=== PATIENT | male | born 1995 | race Caucasian/White ===

== ENCOUNTER 2016-09-20 19:40 | Emergency (ER) | payer BC ==
[~2016-09-20] VITALS: Ht 185.4 cm; Wt 81.0 kg
[2016-09-20 19:44] VITALS: TEMP 36.8; Ht 185.4 cm; Wt 81.0 kg
[2016-09-20] MEDS ORDERED: SODIUM CHLORIDE 0.9% 1000ML 1,000 ML IV STA (19:59)
[2016-09-20 20:16] LABS: BASO % 0.3 %; BASO ABS # 0.02 K/uL (0-0.2); COMPLETE YES; EOS % 0.5 %; HEMATOCRIT 43.9 % (42-52); IG% 0.1 %; LYMPH ABS # 2.29 K/uL (1.2-3.4); MEAN CELL VOLUME 85.1 fL (80-100); MEAN CORPUSCULAR HEMOGLOBIN 29.5 pg (25-34); MEAN CORPUSCULAR HGB CONC 34.6 g/dl (32-36); MEAN PLATELET VOLUME 10.1 fL (7.4-10.4); MONO % 8.3 %; NEUT % 61.8 %; PLATELET COUNT 229 K/uL (130-400); RED BLOOD COUNT 5.16 M/uL (4.7-6.1); WHITE BLOOD COUNT 7.91 K/uL (4.8-10.8)
[2016-09-20 20:32] LABS: CALCIUM 9.2 mg/dl (8.5-10.1); CREATININE 0.97 mg/dl (0.60-1.40); POTASSIUM 3.2 mmol/L (3.5-5.1)
--- NOTE | 2016-09-20 20:55 | DIAGNOSTIC IMAGING REPORT ---
CHEST 2 VIEWS ROUTINE CLINICAL HISTORY: eval for pnea dyspnea COMPARISON STUDY: No previous studies for comparison. FINDINGS: The bones soft tissues and hemidiaphragms are normal. The cardiomediastinal silhouette is normal. The lungs are clear. The pulmonary vasculature is normal. IMPRESSION: Negative chest. Electronically signed by: Alvin Maldonado M.D. 09/20/2016 8:54 PM Dictated Date/Time: 09/20/2016 8:54 PM
[2016-09-20 21:06] VITALS: BP 162/90; O2SAT 99
[2016-09-20 21:08] VITALS: PULSE 59
[2016-09-20] MEDS ORDERED: ATV/1 PO (21:28)
--- NOTE | 2016-09-20 21:54 | EMERGENCY ROOM VISIT NOTE ---
History Report prepared by Jasmyne: Bailee Diana Under the Supervision of: Dr. Pineda Barnes M.D. First contact with patient: 19:46 Chief Complaint: ANXIETY Stated Complaint: FLU SYMPTOMS, INTENSE ANXIETY History of Present Illness The patient is a 21 year old male who presents to the Emergency Room with complaints of worsening anxiety over the past week. The patient notes that he has a history of anxiety and was on Seroquel and Lexapro while he was in high school. He was eventually taken off of the medications and has not been on medications for anxiety in about 4 years. Since then, he has been able to control his anxiety. Since his anxiety began about a week ago he has not felt in control of it, which worries him. He has been having difficulty sleeping secondary to his anxiety. He does not recall any specific trigger to his anxiety other than some stress. He denies suicidal ideation but does admit that he is feeling depressed. The patient reports that he took a friend's Xanax 3 times but has not taken any Xanax since about a week ago. The patient also complains of flu-like symptoms that began about a week ago. He states that he has had a subjective fever, runny nose, mild sore throat, productive cough with green sputum, nausea, and diarrhea. He feels like he is very dehydrated with a dry mouth. Denies vomiting, urinary symptoms, or other complaints.He has been taking Nyquil to aid with some of these symptoms as well as his insomnia. Source of History: patient Onset: a week ago Position: other (global ) Quality: other (anxiety) Timing: worsening Modifying Factors (Worsening): other (stress) Associated Symptoms: + cough (productive with green sputum), + diarrhea, + fevers (subjective), + nausea, + sorethroat, No urinary symptoms, No vomiting Note: Other symptoms: runny nose Review of Systems See HPI for pertinent positives & negatives. A total of 10 systems reviewed and were otherwise negative. Past Medical & Surgical Medical Problems: (1) Anxiety Family History No pertinent family history stated. Social History Smoking Status: Current Every Day Smoker Housing Status: lives with roommate Occupation Status: [employer] student Current/Historical Medications Scheduled PRN Lorazepam (Ativan), 1 MG PO Q8 PRN for Anxiety/Agitation Allergies Coded Allergies: No Known Allergies (Unverified , 09/20/16) Physical Exam Vital Signs Date Time Temp Pulse Resp B/P Pulse Ox O2 Delivery O2 Flow Rate FiO2 09/20/16 21:08 59 09/20/16 21:06 52 16 162/90 99 Room Air 09/20/16 19:44 36.8 77 18 168/79 98 Room Air Physical Exam Constitutional: Vital signs reviewed. Eyes: Pupils are equal round reactive to light. Conjunctiva are noninjected. ENT: Pharynx is mildly erythematous without exudate. Mucous membranes are moist. Neck supple without meningeal signs. Respiratory: Clear to auscultation bilaterally. Breath sounds are equal bilaterally. Cardiovascular: Regular rate and rhythm. No rubs or gallops. GI: Soft, nondistended and nontender. Bowel sounds are present. Musculoskeletal: No peripheral edema. No CVA tenderness. Integumentary: No cyanosis. Neurological: The patient is awake and alert. No focal deficits. Psychiatric: Anxious. Normal affect. Medical Decision & Procedures ER Provider Diagnostic Interpretation: X-ray results as stated below per interpretation by me and the radiologist: CHEST 2 VIEWS ROUTINE CLINICAL HISTORY: eval for pnea dyspnea COMPARISON STUDY: No previous studies for comparison. FINDINGS: The bones soft tissues and hemidiaphragms are normal. The cardiomediastinal silhouette is normal. The lungs are clear. The pulmonary vasculature is normal. IMPRESSION: Negative chest. Electronically signed by: Alvin Maldonado M.D. 09/20/2016 8:54 PM Dictated Date/Time: 09/20/2016 8:54 PM Laboratory Results 09/20/16 20:10 Red Blood Count 5.16, Mean Corpuscular Volume 85.1, Mean Corpuscular Hemoglobin 29.5, Mean Corpuscular Hemoglobin Concent 34.6, Mean Platelet Volume 10.1, Neutrophils (%) (Auto) 61.8, Lymphocytes (%) (Auto) 29.0, Monocytes (%) (Auto) 8.3, Eosinophils (%) (Auto) 0.5, Basophils (%) (Auto) 0.3, Neutrophils # (Auto) 4.89, Lymphocytes # (Auto) 2.29, Monocytes # (Auto) 0.66, Eosinophils # (Auto) 0.04, Basophils # (Auto) 0.02 09/20/16 20:10 Test 09/20/16 20:00 09/20/16 20:10 Influenza Type A Antigen Neg for Influ A (NEG) Influenza Type B Antigen Neg for Influ B (NEG) White Blood Count 7.91 K/uL (4.8-10.8) Red Blood Count 5.16 M/uL (4.7-6.1) Hemoglobin 15.2 g/dL (14.0-18.0) Hematocrit 43.9 % (42-52) Mean Corpuscular Volume 85.1 fL (80-100) Mean Corpuscular Hemoglobin 29.5 pg (25-34) Mean Corpuscular Hemoglobin Concent 34.6 g/dl (32-36) Platelet Count 229 K/uL (130-400) Mean Platelet Volume 10.1 fL (7.4-10.4) Neutrophils (%) (Auto) 61.8 % Lymphocytes (%) (Auto) 29.0 % Monocytes (%) (Auto) 8.3 % Eosinophils (%) (Auto) 0.5 % Basophils (%) (Auto) 0.3 % Neutrophils # (Auto) 4.89 K/uL (1.4-6.5) Lymphocytes # (Auto) 2.29 K/uL (1.2-3.4) Monocytes # (Auto) 0.66 K/uL (0.11-0.59) Eosinophils # (Auto) 0.04 K/uL (0-0.5) Basophils # (Auto) 0.02 K/uL (0-0.2) RDW Standard Deviation 39.4 fL (36.4-46.3) RDW Coefficient of Variation 12.7 % (11.5-14.5) Immature Granulocyte % (Auto) 0.1 % Immature Granulocyte # (Auto) 0.01 K/uL (0.00-0.02) Anion Gap 12.0 mmol/L (3-11) Est Creatinine Clear Calc Drug Dose 136.1 ml/min Estimated GFR () 128.8 Estimated GFR (Non- 111.1 BUN/Creatinine Ratio 9.0 (10-20) Calcium Level 9.2 mg/dl (8.5-10.1) Monoscreen NEG (NEG) Laboratory results as reviewed by me. Medications Administered Medications (Trade) Dose Ordered Sig/Jose Route Start Time Stop Time Status Last Admin Dose Admin Sodium Chloride (Nss 1000ml) 1,000 ml @ 999 mls/hr Q1H1M STAT IV 09/20/16 19:59 09/20/16 20:59 DC 09/20/16 19:59 999 MLS/HR ED Course 1947: The patient was evaluated in room B3. A complete history and physical exam was performed. 1958: Ordered NSS 1000 ml @ 999 mls/hr IV. 2125: I talked to the patient about his test results. He has an appointment scheduled with [facility] on Wednesday. He will be discharged home. Medical Decision this is a 21-year-old male who presents with anxiety and flulike symptoms. Differential diagnosis includes strep pharyngitis, mononucleosis, influenza, viral syndrome, dehydration, anxiety disorder. I did perform a limited focused review of portions of the patient's old chart on the electronic medical record. The patient has had no prior visits to this hospital. I did evaluate the patient as noted above. The patient is presenting with flulike symptoms as well as an increase in anxiety over the past week. I did perform a rapid strep test which was negative. A throat culture is pending. IV access was established. The patient was given a liter normal saline IV. Rapid flu testing was negative. I did order and personally review the patient' s chest x-ray as described above. There is no evidence of pneumonia. I did order and review the patient's blood work as noted in the electronic medical record. Monospot is negative. His white blood cell count is not elevated. Potassium is slightly low. I did discuss his test results with him. He is feeling better at this time. He will increase his dietary potassium. He will follow up with [facility] and.[facility]. He was discharged in good condition and given a short prescription for Ativan for his anxiety. He was given precautions regarding its use. [place] Drug Monitoring Program Search Results: patient reviewed within database, no issues identified Impression Primary Impression: Flu-like symptoms Additional Impressions: Anxiety Dehydration Hypokalemia Scribe Attestation The scribe's documentation has been prepared under my direct and personally reviewed by me in its entirety. I confirm that the note above accurately reflects all work, treatment, procedures, and medical decision making performed by me. Departure Information Dispostion Home / Self-Care Prescriptions Lorazepam (ATIVAN) 1 Mg Tab 1 MG PO Q8 Y for Anxiety/Agitation, #14 TAB Prov: Pineda Barnes M.D. 09/20/16 Referrals [facility] Patient Instructions Anxiety Body Response, Diet High Potassium Dc, Lorazepam Oral tablet, My [facility] Additional Instructions You have been examined and treated today on an emergency basis only. This is not a substitute for, or an effort to provide, complete comprehensive medical care. It is impossible to recognize and treat all injuries or illnesses in a single emergency department visit. It is therefore important that you follow up closely with your physician and counselor. Call as soon as possible for an appointment. Return for worsening symptoms or if you develop fever, vomiting, chest pain, shortness of breath, thoughts of hurting yourself or others or any other concerning symptoms. Problem Qualifiers
== END 2016-09-20 21:36 | disposition home or self-care (01) ==
LOC: C.EDB 19:42
DX: R05 Cough (principal); R19.7 Diarrhea, unspecified; R50.9 Fever, unspecified; R11.0 Nausea; J02.9 Acute pharyngitis, unspecified; F41.9 Anxiety disorder, unspecified; E86.0 Dehydration; E87.6 Hypokalemia; G47.00 Insomnia, unspecified; F17.200 Nicotine dependence, unspecified, uncomplicated

== ENCOUNTER 2017-03-22 06:52 | Emergency (ER) | payer BC ==
[~2017-03-22] VITALS: Ht 185.4 cm; Wt 86.8 kg
[2017-03-22 06:54] VITALS: TEMP 36.6; Ht 185.4 cm; Wt 86.8 kg
[2017-03-22] MEDS ORDERED: PROPARACAINE HCL 0.5% OP SOLN 15 ML BTL OP STA (07:01)
[2017-03-22] MEDS ORDERED: CLON0.5T3 PO (07:16)
--- NOTE | 2017-03-22 07:23 | EMERGENCY ROOM VISIT NOTE ---
History First contact with patient: 06:59 Chief Complaint: EYE ASSESSMENT Stated Complaint: RIGHT EYE INJURY History of Present Illness The patient is a 21 year old male who presents to the Emergency Room with complaints of right eye discomfort. The patient slept with his contact lenses in last night. The patient denies any blurred vision, bloody or mucopurulent drainage from the eye. He does report mild photophobia. Tetanus immunization is up-to-date. He rates her discomfort an 8 out of 10. Review of Systems 10 system review was performed and was negative except for pertinent positives and negatives as indicated in history of present illness Past Medical/Surgical History Medical Problems: (1) Anxiety Family History FH: hypertension Social History Smoking Status: Never Smoker Alcohol Use: occasionally Marital Status: single Housing Status: lives with roommate Occupation Status: [employer] student Current/Historical Medications Scheduled PRN Clonazepam (Klonopin), 0.5 MG PO DAILY PRN for Anxiety Physical Exam Vital Signs Date Time Temp Pulse Resp B/P (MAP) Pulse Ox O2 Delivery O2 Flow Rate FiO2 03/22/17 06:54 36.6 82 18 127/76 97 Room Air Physical Exam CONSTITUTIONAL: Healthy and well nourished. Alert and oriented X 3 with positive affect. HEENT: Normocephalic, atraumatic. Pupils equal, round and reactive. No conjunctival injection, bloody or mucopurulent drainage from the right eye. The patient is mildly photophobic. EOMs intact without discomfort. The patient is noted to have a folded contact lens in the right lower conjunctival sac. NECK: Full active range of motion without discomfort. RESPIRATORY: Clear to auscultation bilaterally with no wheezing, crackles, rhonchi or stridor. CARDIOVASCULAR: Regular rate and rhythm with no murmurs, rubs or gallops. INTEGUMENTARY: No rash or other significant dermatologic conditions noted. NEUROLOGIC: Cranial nerves II-XII grossly intact. No focal neurologic deficits noted. Medical Decision & Procedures Medications Administered Medications (Trade) Dose Ordered Sig/Jose Route Start Time Stop Time Status Last Admin Dose Admin Proparacaine HCl (Alcaine 0.5% Oph Soln) 2 drops NOW STAT OP 03/22/17 07:01 03/22/17 07:02 DC 03/22/17 07:06 2 DROPS Procedure Slit lamp and fluorescein exam were performed after the contact lens was removed from the eye. 2 drops of Alcaine were instilled into the right eye which completely resolved the patient's discomfort. Slit lamp exam shows no additional debris within the lower conjunctival sac. Fluorescein exam does not show any corneal abrasions. There is mild fluorescein uptake, consistent with keratopathy. ED Course Patient history and physical exam were performed. Nurse's notes were reviewed. Vital signs were reviewed and normal. Visual acuity was also reviewed and normal. Slit lamp and fluorescein exam shows a mild contact lens induced keratopathy. There were no abrasions noted. The patient was encouraged to intermittently apply a cool compress to the eye. Ibuprofen or Tylenol as needed for discomfort. Return to the emergency department, or follow up with ophthalmology or in watch train inspector if symptoms are not improving within the next 48 hours. The patient was happy with plan of care, voice understanding of all discharge instructions, and denied any pain at the conclusion of my exam. Medical Decision Medication Reconcilliation Current Medication List: was personally reviewed by me Blood Pressure Screening Patient's blood pressure: Normal blood pressure Impression Primary Impression: Contact lens stuck Departure Information Referrals No Doctor, Assigned (PCP) Patient Instructions My [facility]
[2017-03-22 07:25] VITALS: BP 127/76; PULSE 82; O2SAT 97
== END 2017-03-22 07:25 | disposition home or self-care (01) ==
LOC: C.EDB 06:54
DX: H18.821 Corneal disorder due to contact lens, right eye (principal)

== ENCOUNTER 2017-10-01 02:22 | Emergency (ER) | payer BC ==
[~2017-10-01] VITALS: Ht 185.4 cm; Wt 85.0 kg
[~2017-10-01 02:22] MED LIST: CLON0.5T3 PO
[2017-10-01 02:35] VITALS: TEMP 36.8; Ht 185.4 cm; Wt 85.0 kg
[2017-10-01 02:56] LABS: HEMATOCRIT 46.1 % (42-52); HEMOGLOBIN 16.6 g/dL (14.0-18.0); MEAN CELL VOLUME 87.1 fL (80-100); MEAN CORPUSCULAR HEMOGLOBIN 31.4 pg (25-34); MEAN PLATELET VOLUME 9.7 fL (7.4-10.4); PLATELET COUNT 260 K/uL (130-400); RED CELL DISTRIBUTION WIDTH CV 11.9 % (11.5-14.5); RED CELL DISTRIBUTION WIDTH SD 38.1 fL (36.4-46.3); WHITE BLOOD COUNT 8.75 K/uL (4.8-10.8)
[2017-10-01 03:20] LABS: ALBUMIN 4.4 gm/dl (3.4-5.0); ALT/SGPT 31 U/L (12-78); AST/SGOT 21 U/L (15-37); BLOOD UREA NITROGEN 9 mg/dl (7-18); CALCIUM 8.7 mg/dl (8.5-10.1); CARBON DIOXIDE 25 mmol/L (21-32); CREATININE 1.18 mg/dl (0.60-1.40); GLUCOSE 102 mg/dl (70-99); POTASSIUM 3.5 mmol/L (3.5-5.1); SODIUM 141 mmol/L (136-145)
[2017-10-01] MEDS ORDERED: CLON1TAB3 PO (03:27)
[2017-10-01] MEDS ORDERED: LISD20CA PO (03:28)
[2017-10-01 03:31] LABS: ALKALINE PHOSPHATASE 55 U/L (45-117); TOTAL PROTEIN 8.2 gm/dl (6.4-8.2)
[2017-10-01] MEDS ORDERED: XYLOCAINE 1%/SOD BICARB 20 ML VIAL INFIL ONE (04:00)
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
--- NOTE | 2017-10-01 07:55 | EMERGENCY ROOM VISIT NOTE ---
ED Visit Note I was asked by Dr. Waite to evaluate and repair the lacerations on the patient' s proximal, posterior forearm. 2 lacerations noted in the horizontal plane extending into the subcutaneous tissue measuring 3cm (superior) and 4cm ( inferior). The wounds look clean and there is no foreign body or deep structures such as tendons, bones, or blood vessels noted. Please see Dr. Waite' s documentation regarding further management and care. Verbal consent was obtained to perform the procedure. Using sterile technique the wound was cleaned with Betadine. The area was sterilely draped. 8 ml of 1 % buffered lidocaine was used to anesthetize the proximal left forearm. Once the patient was anesthetized, the wound was copiously irrigated under pressure with sterile saline. The wound was explored and there were no deep structures injured such as tendons, bone, or significant blood vessels. The laceration was repaired using 6 simple interrupted 5-0 nylon sutures (superior) and 7 simple interrupted 5-0 nylon sutures (inferior) with the wound edges being well approximated. The patient tolerated the procedure well. Hemostasis was achieved. The area was cleaned with sterile saline and dressed with bacitracin ointment and bandage.
[2017-10-01 09:39] VITALS: BP 153/83; PULSE 73; O2SAT 95
--- NOTE | 2017-10-01 15:35 | EMERGENCY ROOM VISIT NOTE ---
ED Visit Note First contact with patient: 07:04 I received this patient in signout at the change of shift from Dr. Waite, pending repair of the left forearm lacerations and mental health evaluation. The patient again reiterates no suicidal thoughts or plans. This was an attempt to get his "girlfriend's attention." He does see psychiatry and has good outpatient follow-up. He is able to contract for safety and will be discharged in care of her friend. He will return to the ER for worsening of symptoms or any medical concerns.
== END 2017-10-01 09:45 | disposition home or self-care (01) ==
LOC: EDBD 02:22 → C.EDA 02:23
DX: S41.111A Laceration without foreign body of right upper arm, initial encounter (principal); X78.1XXA Intentional self-harm by knife, initial encounter; Y90.6 Blood alcohol level of 120-199 mg/100 ml; F10.920 Alcohol use, unspecified with intoxication, uncomplicated; F14.90 Cocaine use, unspecified, uncomplicated; F12.90 Cannabis use, unspecified, uncomplicated; F41.9 Anxiety disorder, unspecified; R03.0 Elevated blood-pressure reading, without diagnosis of hypertension; Z87.891 Personal history of nicotine dependence